=== PATIENT | male | born 1945 | race Caucasian/White ===

== ENCOUNTER 2021-11-09 18:06 | Emergency (ER) | payer MEDICARE ==
[~2021-11-09] VITALS: Ht 165.1 cm; Wt 75.5 kg
[~2021-11-09 18:06] MED LIST: COLACE 100100 MG/CAP PO; PERI-COLACE 501 TAB PO; PROSTATE MED
[2021-11-09 18:29] VITALS: TEMP 98.1
[2021-11-09] MEDS ORDERED: AMOXICILLIN 8751 TAB PO (20:06)
[2021-11-09 20:30] VITALS: BP 136/82; PULSE 74
== END 2021-11-09 20:30 | disposition home or self-care (01) ==
LOC: COL.ER 18:06
DX: S01.21XA Laceration without foreign body of nose, initial encounter (principal); Z23 Encounter for immunization; W54.0XXA Bitten by dog, initial encounter; Y93.89 Activity, other specified

== ENCOUNTER → 2024-05-25 | Outpatient (CLI) | payer MEDICARE ==
[~2024-05-25] MED LIST changes: +AMOXICILLIN 8751 TAB PO; +Gadoterate 15 ML VIAL IV ONE
== END ==
LOC: COL.RAD 11:22
DX: M50.31 Other cervical disc degeneration, high cervical region (principal); M89.38 Hypertrophy of bone, other site; M50.321 Other cervical disc degeneration at C4-C5 level; M25.78 Osteophyte, vertebrae; M47.812 Spondylosis without myelopathy or radiculopathy, cervical region; M48.02 Spinal stenosis, cervical region; M89.8X8 Other specified disorders of bone, other site
CPT/HCPCS: A9575